=== PATIENT | male | born 1990 | race African-American/Black ===

== ENCOUNTER 2020-06-23 17:21 | Observation (INO) ==
[2020-06-23] MEDS ORDERED: ONDANSETRON 4 MG/2 ML VIAL IV STA (17:40)
[2020-06-23] MEDS ORDERED: SODIUM CHLORIDE 0.9% 1,000 ML IV STA (17:40)
[2020-06-23] MEDS ORDERED: PANTOPRAZOLE 40 MG VIAL IV STA (17:40)
[2020-06-23] MEDS ORDERED: LACTATED RINGERS 1,000 ML IV ONE (17:42)
[2020-06-23 18:37] LABS: Bilirubin,Urine Negative (Negative); Blood, Urine Small mg/dL (Negative); Glucose,Urine (UA) Negative (Negative); Ketones,Urine 20 mg/dL (Negative); Mucus,Urine Occasional /LPF (Occasional); Nitrite,Urine Negative (Negative); Protein,Urine Negative; RBC,Urine 2 /HPF (0-4); Squamous Epithelial Cell,Urine Occasional /HPF (0-10); Urine Appearance CLEAR (Clear); Urine Color Straw (Yellow); Urine Specific Gravity 1.014 (1.001-1.035); Urine Urobilinogen < 2.0 EU/DL (0.2-1.0)
[2020-06-23 18:39] LABS: Basophils # 0.1 10*3/uL (0.0-0.2); Basophils % 0.4 % (0.0-0.8); Eosinophils % 0.1 % (0.00-10.9); Hematocrit 47.7 VOL% (42.0-52.0); Hemoglobin 14.6 GM/DL (14.0-18.0); Immature Granulocytes % 1.1 %; Immature Granulocytes Absolute 0.25 #; Lymphocytes # 2.8 10*3/uL (1.4-4.0); Lymphocytes % 11.9 % (21.2-54.2); Mean Corpuscular HGB Conc 30.6 GM/DL (32-36); Mean Corpuscular Volume 96.8 FL (87-102); Mean Platelet Volume 10.4 FL (9.6-12.0); Monocytes % 3.6 % (1.7-12.7); Neutrophils % 82.9 % (38.7-73.9); Platelet Count 306 T/CUMM (130-400); Red Blood Count 4.93 MC/CUMM (3.8-5.5); White Blood Count 23.3 T/CUMM (4-12)
[2020-06-23 18:40] LABS: Barbiturates Screen,Urine Negative (Negative); Benzodiazepines Screen,Urine Negative (Negative); Cannabinoid Screen,Urine Positive (Negative); Opiate Screen,Urine Negative (Negative); Phencyclidine Screen,Urine Negative (Negative)
[2020-06-23 18:42] LABS: Albumin 4.9 G/DL (3.4-5.0); Bilirubin,Total 0.6 MG/DL (0.2-1.0); Calcium 9.6 MG/DL (8.5-10.1); Osmolality,Calculated 279.1 MOS/KG (273-304); Total Protein 8.6 G/DL (6.4-8.3)
[2020-06-23] MEDS ORDERED: DEXTROSE 50% 25 GM/50 ML SYRINGE IV ONE (18:53)
[2020-06-23 18:56] LABS: Lymphocytes 11 % (20-55); Segmented Neutrophils 87 % (50-85); Total Cells Counted 100
[2020-06-23] MEDS ORDERED: PROMETHAZINE 25 MG/1 ML VIAL ONE (18:56)
[2020-06-23 18:57] LABS: Anisocytosis Slight; Macrocytosis Slight; Platelet Estimate Adequate
[2020-06-23] MEDS ORDERED: DEXTROSE 50% 25 GM/50 ML VIAL IV STA (18:59)
[2020-06-23] MEDS ORDERED: POTASSIUM CHLORIDE 20 MEQ TABLET PO STA (19:05)
[2020-06-23] MEDS ORDERED: PROMETHAZINE INJ 12.5 MG in SODIUM CHLORIDE 0.9% 50 ML IV STA (19:17)
[2020-06-23] MEDS ORDERED: SODIUM CHLORIDE 0.9% 1,000 ML IV SCH (19:30)
[2020-06-23] MEDS ORDERED: GLUCAGON 1 MG VIAL IM PRN (19:30)
[2020-06-23] MEDS ORDERED: DEXTROSE 50% 25 GM/50 ML VIAL IV PRN (19:30)
[2020-06-23] MEDS ORDERED: ONDANSETRON 4 MG/2 ML VIAL IV PRN (19:36)
[2020-06-23] MEDS ORDERED: PROMETHAZINE INJ 12.5 MG in SODIUM CHLORIDE 0.9% 50 ML IV PRN (19:36)
[2020-06-23] MEDS ORDERED: THIAMINE INJ 100 MG, FOLIC ACID INJ 1 MG, MULTIVITAMIN INJ 10 ML in DEXTROSE 5% NACL 0.... IV SCH (20:00)
[2020-06-23] MEDS ORDERED: DEXTROSE 5% NACL 0.45% 1,000 ML IV SCH (20:00)
[2020-06-23] MEDS ORDERED: POTASSIUM CHLORIDE RIDER 10 MEQ in PREMIX 1 EACH IV PRN (20:02)
[2020-06-23] MEDS ORDERED: NACL 0.45% IV SCH (21:00)
[2020-06-23] MEDS ORDERED: THIAMINE 100 MG IV SCH (21:00)
[2020-06-23] MEDS ORDERED: DEXTROSE 5% IV SCH (21:00)
[2020-06-23] MEDS ORDERED: MULTIVI IV SCH (21:00)
[2020-06-23] MEDS ORDERED: FOLIC ACID IV SCH (21:00)
[2020-06-23] MEDS: DEXTROSE 5% IV SCH (22:46)
[2020-06-23] MEDS: FOLIC ACID IV SCH (22:46)
[2020-06-23] MEDS: THIAMINE 100 MG IV SCH (22:46)
[2020-06-23] MEDS: NACL 0.45% IV SCH (22:46)
[2020-06-23] MEDS: MULTIVI IV SCH (22:46)
[2020-06-23] MEDS: PANTOPRAZOLE 40 MG VIAL IV SCH (22:47)
[2020-06-24 05:52] LABS: Basophils % 0.3 % (0.0-0.8); Eosinophils % 0.2 % (0.00-10.9); Hematocrit 39.6 VOL% (42.0-52.0); Hemoglobin 12.8 GM/DL (14.0-18.0); Immature Granulocytes % 0.4 %; Immature Granulocytes Absolute 0.06 #; Lymphocytes # 2.1 10*3/uL (1.4-4.0); Lymphocytes % 14.1 % (21.2-54.2); Mean Corpuscular HGB Conc 32.3 GM/DL (32-36); Mean Corpuscular Volume 91.7 FL (87-102); Mean Platelet Volume 10.4 FL (9.6-12.0); Monocytes % 5.9 % (1.7-12.7); Neutrophils % 79.1 % (38.7-73.9); Platelet Count 218 T/CUMM (130-400); Red Blood Count 4.32 MC/CUMM (3.8-5.5); Red Cell Distribution Width 12.7 % (9.3-17.3)
[2020-06-24] MEDS: MULTIVI IV SCH (06:07)
[2020-06-24] MEDS: THIAMINE 100 MG IV SCH (06:07)
[2020-06-24] MEDS: NACL 0.45% IV SCH (06:07)
[2020-06-24] MEDS: DEXTROSE 5% IV SCH (06:07)
[2020-06-24] MEDS: FOLIC ACID IV SCH (06:07)
[2020-06-24 06:35] LABS: Albumin 3.7 G/DL (3.4-5.0); Bilirubin,Total 1.1 MG/DL (0.2-1.0); Calcium 8.9 MG/DL (8.5-10.1); Osmolality,Calculated 274.5 MOS/KG (273-304); Thyroid Stimulating Hormone 0.222 uIU/ml (0.358-3.74); Total Protein 6.9 G/DL (6.4-8.3)
[2020-06-24 07:38] VITALS: BP 102/48
[2020-06-24] MEDS: PANTOPRAZOLE 40 MG VIAL IV SCH (08:52)
== END 2020-06-24 10:24 | disposition home or self-care (01) ==
LOC: EDUNIT# → EDBD → N.ED 17:21 → INTOOBSV 19:30 → N.EDINP 19:30 → N.3E 22:00
PROVIDERS: ADMIT Internal Medicine; ATTEND Internal Medicine